=== PATIENT | female | born 1950 | race Caucasian/White ===

== ENCOUNTER 2018-08-26 11:24 | Inpatient (IN) | payer MEDICARE, MEDICAID ==
[~2018-08-26] VITALS: Ht 160 cm; Wt 65.9 kg
[~2018-08-26 11:24] MED LIST: ASPI-1182 PO; BENA20TA10; METF-444 PO; PIOG30TA10
[2018-08-26 11:44] LABS: GLUCOSE,POINT OF CARE 186 MG/DL (70-110)
[2018-08-26] MEDS ORDERED: SODIUM CHLORIDE 0.9% 250 ML IV ONE ×2 (12:00→18:45)
[2018-08-26 12:27] LABS: EOSINOPHILS % (AUTO) 0 % (1.0-6.0); HEMATOCRIT 25.8 % (36-46); HEMOGLOBIN 8.3 g/dL (12.0-16.0); LYMPHOCYTES # (AUTO) 0.6 K/uL (1.0-4.8); LYMPHOCYTES % (AUTO) 6.6 % (22.0-44.0); MEAN CORPUSCULAR HEMOGLOBIN 27.8 pg (26.0-34.0); MEAN CORPUSCULAR HGB CONC 32.2 G/dL (31.0-37.0); MEAN CORPUSCULAR VOLUME 86 fL (80-100); MONOCYTES # (AUTO) 0.6 K/uL (0.1-1.0); MONOCYTES % (AUTO) 7.3 % (2.0-9.0); NEUTROPHILS # (AUTO) 7.3 K/uL (1.8-7.7); PLATELET COUNT (AUTO) 194 K/uL (150-450); RED CELL DISTRIBUTION WIDTH 17.8 % (11.5-14.5)
[2018-08-26 12:28] LABS: NEUTROPHILS % (AUTO) 86.1 % (40.0-70.0)
[2018-08-26 12:38] LABS: CALCIUM, TOTAL 7.9 mg/dL (8.8-10.5); CREATININE 1.62 mg/dL (0.60-1.30); POTASSIUM 4.9 mmol/L (3.5-5.1)
[2018-08-26 12:39] LABS: INR 1.4 (0.9-1.1)
[2018-08-26 12:44] LABS: ALBUMIN 1.5 g/dL (3.4-5.0); BILIRUBIN,TOTAL 0.5 mg/dL (0.1-1.0); TOTAL PROTEIN, SERUM 6.5 g/dL (6.4-8.2)
[2018-08-26] MEDS ORDERED: HYDROmorphone 2 MG/ML SYRINGE IVP ONE ×2 (12:45→18:45)
[2018-08-26 12:49] LABS: LACTIC ACID 1.6 mmol/L (0.4-2.0)
[2018-08-26] MEDS ORDERED: SODIUM CHLORIDE 0.9% 500 ML IV ONE (13:30)
[2018-08-26 15:12] LABS: APPEARANCE,URINE TURBID (CLEAR); GLUCOSE, URINE (UA) NEGATIVE (NEGATIVE); KETONES,URINE NEGATIVE (NEGATIVE); LEUKOCYTE ESTERASE ,URINE LARGE (NEGATIVE); NITRATE,URINE NEGATIVE (NEGATIVE); OCCULT BLOOD,URINE LARGE (NEGATIVE); PROTEIN,URINE SEE CONFIRM (NEGATIVE); UROBILINOGEN,URINE 0.2 mg/dL (<=1.0)
[2018-08-26 15:13] LABS: BILIRUBIN,URINE PRELIM. POSITIVE (NEGATIVE)
[2018-08-26 15:19] LABS: SULFOSALICYLIC ACID,URINE 3+ (Negative)
[2018-08-26 15:20] LABS: BACTERIA,URINE Many /HPF (None Seen); RBC,URINE 26-50 /HPF (0-2); SQUAMOUS EPITHELIAL CELL,UR Few /LPF (None Seen); WBC,URINE 26-50 /HPF (0-5); YEAST,URINE Many /HPF (None Seen)
[2018-08-26] MEDS ORDERED: LEVOFLOXACIN 500 MG/D5% WATER 100 ML IV ONE (19:00)
[2018-08-26] MEDS ORDERED: METH10 PO (20:18)
[2018-08-26 21:08] VITALS: BP 97/54
[2018-08-26] MEDS ORDERED: HYDR2TAB5 PO (21:10)
[2018-08-26] MEDS ORDERED: MAGNESIUM HYDROXIDE SUSPENSION 30 ML UDCUP PO PRN (21:45)
[2018-08-26] MEDS ORDERED: ACETAMINOPHEN 325 MG TABLET PO PRN (21:45)
[2018-08-26] MEDS ORDERED: INSULIN LISPRO 100 UNITS/ML SQ PRN (21:45)
[2018-08-26] MEDS ORDERED: *CLINICAL-LEVOFLOXACIN IVPB DOSING CLINICAL ONE (21:45)
[2018-08-26] MEDS ORDERED: BISACODYL 10 MG RECTAL RECTAL SUPPOSITORY PR PRN (21:45)
[2018-08-26] MEDS ORDERED: HYDROCODONE/ACETAMINOPHEN 5-325 MG TABLET PO PRN (21:45)
[2018-08-26] MEDS ORDERED: ONDANSETRON HCL 4 MG/2 ML VIAL IVP PRN (21:45)
[2018-08-26] MEDS ORDERED: SODIUM CHLORIDE 0.9% 1,000 ML IV ONE (21:45)
[2018-08-26] MEDS ORDERED: MORPHINE SULFATE 2 MG/ML SYRINGE IVP PRN (21:45)
[2018-08-26] MEDS ORDERED: DEXTROSE 50%-WATER 25 GM/50 ML SYRINGE IVP PRN (21:45)
[2018-08-26] MEDS ORDERED: ZOLPIDEM TARTRATE 5 MG TABLET PO PRN (21:45)
[2018-08-27] VITALS (14 sets, daily range): BP systolic 78–148; BP diastolic 58–95
[2018-08-27] MEDS: HEPARIN SODIUM,PORCINE 5,000 UNITS/ML VIAL SQ SCH ×4 (00:39→23:52)
[2018-08-27] MEDS ORDERED: HYDROmorphone HCL 2 MG TABLET PO PRN ×3 (00:45→06:45)
[2018-08-27] MEDS ORDERED: HEPARIN SODIUM,PORCINE 100 UNITS/ML 5 ML VIAL IVP PRN (03:15)
[2018-08-27] MEDS: PANTOPRAZOLE SODIUM 40 MG DR TABLET PO SCH (08:53)
[2018-08-27] MEDS: DOCUSATE SODIUM 100 MG CAPSULE PO SCH ×2 (08:53→20:24)
[2018-08-27] MEDS: HYDROmorphone 2 MG/ML SYRINGE IVP PRN (11:59)
[2018-08-27] MEDS ORDERED: MIDAZOLAM HCL 2 MG/2 ML VIAL ONE (12:10)
[2018-08-27] MEDS ORDERED: FentaNYL CITRATE-PF 100 MCG/2 ML VIAL ONE (12:10)
[2018-08-27] MEDS ORDERED: FLUMAZENIL 0.1 MG/ML 5 ML VIAL IVP ONE (12:10)
[2018-08-27] MEDS ORDERED: NALOXONE HCL 0.4 MG/ML VIAL ONE (12:10)
[2018-08-27] MEDS ORDERED: LIDOCAINE/PF 1% 30 ML VIAL ONE (12:11)
[2018-08-27] MEDS ORDERED: IOHEXOL 300 MG/ML 50 ML VIAL ONE (12:11)
[2018-08-27 13:05] LABS: GLUCOMETER DEV NAME(LOC) 5N 1P; GLUCOSE,POINT OF CARE 157 MG/DL (70-110)
[2018-08-27 13:05] LABS: GLUCOMETER DEV NAME(LOC) 5N 1P; GLUCOSE,POINT OF CARE 140 MG/DL (70-110)
[2018-08-27] MEDS ORDERED: SODIUM CHLORIDE 0.9% 1,000 ML IV ONE (14:30)
[2018-08-27] MEDS: SODIUM CHLORIDE 0.9% 1,000 ML IV SCH (16:38)
[2018-08-27] MEDS ORDERED: LEVOFLOXACIN 250 MG/D5% WATER 50 ML IV SCH (20:00)
[2018-08-28] VITALS (9 sets, daily range): BP systolic 84–124; BP diastolic 41–75
[2018-08-28] MEDS: HYDROmorphone 2 MG/ML SYRINGE IVP PRN ×2 (01:14→12:44)
[2018-08-28 04:53] LABS: BASOPHILS % (AUTO) 0.1 % (0.0-2.0); EOSINOPHILS % (AUTO) 0.1 % (1.0-6.0); HEMATOCRIT 24.3 % (36-46); LYMPHOCYTES # (AUTO) 0.5 K/uL (1.0-4.8); MEAN CORPUSCULAR HEMOGLOBIN 28.2 pg (26.0-34.0); MEAN CORPUSCULAR HGB CONC 32.4 G/dL (31.0-37.0); MEAN CORPUSCULAR VOLUME 87 fL (80-100); MONOCYTES # (AUTO) 0.3 K/uL (0.1-1.0); MONOCYTES % (AUTO) 4.8 % (2.0-9.0); NEUTROPHILS # (AUTO) 4.6 K/uL (1.8-7.7); PLATELET COUNT (AUTO) 138 K/uL (150-450); RED BLOOD CELL COUNT(AUTO) 2.79 MIL/uL (4.00-5.20); RED CELL DISTRIBUTION WIDTH 17.7 % (11.5-14.5)
[2018-08-28 04:57] LABS: CALCIUM, TOTAL 6.9 mg/dL (8.8-10.5); CREATININE 1.38 mg/dL (0.60-1.30); POTASSIUM 4.8 mmol/L (3.5-5.1)
[2018-08-28] MEDS: SODIUM CHLORIDE 0.9% 1,000 ML IV SCH ×2 (05:08→17:10)
[2018-08-28] MEDS: DOCUSATE SODIUM 100 MG CAPSULE PO SCH (09:32)
[2018-08-28] MEDS: PANTOPRAZOLE SODIUM 40 MG DR TABLET PO SCH (09:32)
[2018-08-28] MEDS: HEPARIN SODIUM,PORCINE 5,000 UNITS/ML VIAL SQ SCH ×2 (09:32→17:04)
[2018-08-28 14:04] LABS: GLUCOSE,POINT OF CARE 129 MG/DL (70-110)
[2018-08-28 14:04] LABS: GLUCOSE,POINT OF CARE 136 MG/DL (70-110)
[2018-08-28 18:09] LABS: GLUCOSE,POINT OF CARE 140 MG/DL (70-110)
== END 2018-08-28 18:40 | disposition home or self-care (01) | DRG 698 ==
LOC: EMS 11:25 → 5S 19:53 → ICU 08-27 17:25
PROVIDERS: ADMIT Internal Medicine; ATTEND Internal Medicine
PROC: 0T9330Z Drainage of Right Kidney Pelvis with Drainage Device, Percutaneous Approach (ICD-10-PCS; principal; 2018-08-27)
DX: T83.022A Displacement of nephrostomy catheter, initial encounter (principal); G93.41 Metabolic encephalopathy; N39.0 Urinary tract infection, site not specified; C56.9 Malignant neoplasm of unspecified ovary; E86.0 Dehydration; Y83.8 Other surgical procedures as the cause of abnormal reaction of the patient, or of later complication, without mention of misadventure at the time of the procedure; I95.9 Hypotension, unspecified; D64.9 Anemia, unspecified; E11.9 Type 2 diabetes mellitus without complications; I10 Essential (primary) hypertension; N28.9 Disorder of kidney and ureter, unspecified; Y82.8 Other medical devices associated with adverse incidents; Y73.2 Prosthetic and other implants, materials and accessory gastroenterology and urology devices associated with adverse incidents; Z88.0 Allergy status to penicillin; Z85.43 Personal history of malignant neoplasm of ovary; Z93.3 Colostomy status; Z85.528 Personal history of other malignant neoplasm of kidney; Z91.040 Latex allergy status
CPT/HCPCS: 36245; 50435; 76000; 83605; 87040; 87081; 87086; 93005; 93925; 93970; 96361; 96365; 96375; 99285; J1170; J1644; J1956; J2250; J2310; J3010; J3490; J7030; J7040; J7050; Q9967